=== PATIENT | male | born 1995 | race Hispanic/Latino ===

== ENCOUNTER 2018-05-10 12:15 | Emergency (ER) | payer BC, SELFPAY ==
--- NOTE | 2018-05-10 13:07 | EDPHYS ---
Physician Documentation [facility] Name: Lizandro Govea Age: 22 yrs Sex: Male : 1995 Arrival Date: 05/10/2018 Time: 12:20 Bed 9 Private MD: None, None ED Physician Cirilo King HPI: 05/10 14:11 This 22 yrs old Male presents to ER via Ambulatory with complaints of Knee snw Pain. 14:11 The patient presents with knee continues to give out at intervals. The complaints snw affect the left knee. Context: The problem was sustained at home, resulted from twisting of the extremity, while running, the patient can fully bear weight, the patient is able to ambulate, knee injury initially occurred in August 2017 at [facility] [employer] in [place]. Knee gives out suddenly and unexpectedly. Today at work, pt was walking with co-worker. knee gave out and pt fell to ground. Onset: The symptoms/episode began/occurred suddenly. Associated signs and symptoms: Pertinent positives: swelling. Treatment prior to arrival includes: no previous treatment. Severity of symptoms: At their worst the symptoms were moderate. as noted. The patient has not recently seen a physician. pt's fall at work was last evening (05/09/18). Historical: - Allergies: 12:32 No Known Allergies; sv - PMHx: 12:32 None; sv - PSHx: 12:32 None; sv - Immunization history:: Flu vaccine is not up to date. - Social history:: Smoking status: Patient uses tobacco products, smokes one-half pack cigarettes per day. - Ebola Screening: : No symptoms or risks identified at this time. ROS: 14:06 Constitutional: Negative for fever, chills, and weight loss, Eyes: Negative for injury, snw pain, redness, and discharge, ENT: Negative for injury, pain, and discharge, Neck: Negative for injury, pain, and swelling, Cardiovascular: Negative for chest pain, palpitations, and edema, Respiratory: Negative for shortness of breath, cough, wheezing, and pleuritic chest pain, Abdomen/GI: Negative for abdominal pain, nausea, vomiting, diarrhea, and constipation, Back: Negative for injury and pain, : Negative for injury, bleeding, discharge, and swelling, Skin: Negative for injury, rash, and discoloration, Neuro: Negative for headache, weakness, numbness, tingling, and seizure, Psych: Negative for depression, anxiety, suicide ideation, homicidal ideation, and hallucinations. 14:06 MS/extremity: Positive for injury or acute deformity, swelling, tenderness, left knee continues to give out in intervals while walking, initially injured knee in August . Exam: 14:06 Constitutional: This is a well developed, well nourished patient who is awake, alert, snw and in no acute distress. Head/Face: Normocephalic, atraumatic. Eyes: Pupils equal round and reactive to light, extra-ocular motions intact. Lids and lashes normal. Conjunctiva and sclera are non-icteric and not injected. Cornea within normal limits. Periorbital areas with no swelling, redness, or edema. ENT: Nares patent. No nasal discharge, no septal abnormalities noted. Tympanic membranes are normal and external auditory canals are clear. Oropharynx with no redness, swelling, or masses, exudates, or evidence of obstruction, uvula midline. Mucous membranes moist. Neck: Trachea midline, no thyromegaly or masses palpated, and no cervical lymphadenopathy. Supple, full range of motion without nuchal rigidity, or vertebral point tenderness. No Meningismus. Chest/axilla: Normal chest wall appearance and motion. Nontender with no deformity. No lesions are appreciated. Cardiovascular: Regular rate and rhythm with a normal S1 and S2. No gallops, murmurs, or rubs. Normal PMI, no JVD. No pulse deficits. Respiratory: Lungs have equal breath sounds bilaterally, clear to auscultation and percussion. No rales, rhonchi or wheezes noted. No increased work of breathing, no retractions or nasal flaring. Abdomen/GI: Soft, non-tender, with normal bowel sounds. No distension or tympany. No guarding or rebound. No evidence of tenderness throughout. Back: No spinal tenderness. No costovertebral tenderness. Full range of motion. Skin: Warm, dry with normal turgor. Normal color with no rashes, no lesions, and no evidence of cellulitis. MS/ Extremity: Pulses equal, no cyanosis. Neurovascular intact. Full, normal range of motion. Neuro: Awake and alert, GCS 15, oriented to person, place, time, and situation. Cranial nerves II-XII grossly intact. Motor strength 5/5 in all extremities. Sensory grossly intact. Cerebellar exam normal. Normal gait. Psych: Awake, alert, with orientation to person, place and time. Behavior, mood, and affect are within normal limits. Vital Signs: 12:32 BP 134 / 72; Pulse 78; Resp 16; Temp 98; Pulse Ox 99% ; Weight 95.25 kg; Height 5 ft. sv 11 in. (180.34 cm); Pain 0/10; 12:32 Body Mass Index 29.29 (95.25 kg, 180.34 cm) sv MDM: 12:49 Patient medically screened. snw 14:08 Data reviewed: vital signs, nurses notes. Data interpreted: Pulse oximetry: on room air snw is 99 %. Interpretation: normal. Counseling: I had a detailed discussion with the patient and/or guardian regarding: the historical points, exam findings, and any diagnostic results supporting the discharge/admit diagnosis, the need for outpatient follow up, to return to the emergency department if symptoms worsen or persist or if there are any questions or concerns that arise at home. Special discussion: Based on the history and exam findings, there is no indication for further emergent testing or inpatient evaluation. I discussed with the patient/guardian the need to see the orthopedic surgeon for further evaluation of the symptoms. 05/10 13:06 Order name: Knee Immobilizer; Complete Time: 14:00 snw Administered Medications: No medications were administered Disposition: 15:51 Co-signature as Attending Physician, Cirilo King MD I agree with the assessment and gege plan of care. Disposition: 05/10/18 13:06 Discharged to Home. Impression: Internal derangement of knee. - Condition is Stable. - Discharge Instructions: Knee Immobilizer, Knee Sprain, Cryotherapy, Heat Therapy. - Prescriptions for Motrin IB 200 mg Oral Tablet - take 2 tablet by ORAL route every 6 hours As needed as needed with food; 40 tablet. - Work release form, Medication Reconciliation Form, Thank You Letter, Antibiotic Education, Prescription Opioid Use form. - Follow up: Private Physician; When: 1 - 2 days; Reason: Recheck today's complaints, Continuance of care, Re-evaluation by your physician. Follow up: Emergency Department; When: As needed; Reason: Worsening of condition. Signatures: Padmaja Moore RN RN sv Anderson, Corey, MD MD cha Ramesh, Gillian, COW BUYER-C COW BUYER-Csnw Carin Rico RN RN iw Corrections: (The following items were deleted from the chart) 14:23 13:06 05/10/2018 13:06 Discharged to Home. Impression: Internal derangement of knee. iw Condition is Stable. Forms are Medication Reconciliation Form, Thank You Letter, Antibiotic Education, Prescription Opioid Use. Follow up: Private Physician; When: 1 - 2 days; Reason: Recheck today's complaints, Continuance of care, Re-evaluation by your physician. Follow up: Emergency Department; When: As needed; Reason: Worsening of condition. snw
--- NOTE | 2018-05-10 13:07 | ER ---
Nurse's Notes [facility] Name: Lizandro Govea Age: 22 yrs Sex: Male : 1995 Arrival Date: 05/10/2018 Time: 12:20 Bed 9 Private MD: None, None Diagnosis: Internal derangement of knee Presentation: 05/10 12:30 Presenting complaint: Patient states: left knee pain since August 2017. Was at work today sv and the knee gave out on him. Transition of care: patient was not received from another setting of care. Onset of symptoms was 2017. Care prior to arrival: None. 12:30 Method Of Arrival: Ambulatory sv 12:30 Acuity: NIRMALA 4 sv 14:00 Risk Assessment: Do you want to hurt yourself or someone else? Patient reports no iw desire to harm self or others. Initial Sepsis Screen: Does the patient meet any 2 criteria? No. Patient's initial sepsis screen is negative. Does the patient have a suspected source of infection? No. Patient's initial sepsis screen is negative. Triage Assessment: 12:32 General: Appears in no apparent distress. comfortable, Behavior is calm, cooperative, sv appropriate for age. Pain: Denies pain. Neuro: Level of Consciousness is awake, alert, obeys commands, Oriented to person, place, time, situation, Moves all extremities. Full function Gait is steady. Respiratory: Respiratory effort is even, unlabored, Respiratory pattern is regular, symmetrical. Historical: - Allergies: 12:32 No Known Allergies; sv - PMHx: 12:32 None; sv - PSHx: 12:32 None; sv - Immunization history:: Flu vaccine is not up to date. - Social history:: Smoking status: Patient uses tobacco products, smokes one-half pack cigarettes per day. - Ebola Screening: : No symptoms or risks identified at this time. Screenin:20 Abuse screen: Denies threats or abuse. Denies injuries from another. Nutritional iw screening: No deficits noted. Tuberculosis screening: No symptoms or risk factors identified. Fall Risk None identified. Vital Signs: 12:32 BP 134 / 72; Pulse 78; Resp 16; Temp 98; Pulse Ox 99% ; Weight 95.25 kg; Height 5 ft. sv 11 in. (180.34 cm); Pain 0/10; 12:32 Body Mass Index 29.29 (95.25 kg, 180.34 cm) sv ED Course: 12:20 Patient arrived in ED. sb2 12:21 None, None is Private Physician. sb2 12:21 Gillian Chandler FNP-C [facility]. snw 12:21 Cirilo King MD is Attending Physician. snw 12:30 Patient has correct armband on for positive identification. iw 12:31 Triage completed. sv 12:32 Arm band placed on. sv 14:20 No provider procedures requiring assistance completed. Patient did not have IV access iw during this emergency room visit. 14:23 Carin Rico, RN is Primary Nurse. iw Administered Medications: No medications were administered Outcome: 13:06 Discharge ordered by . snw 14:22 Discharged to home ambulatory. iw 14:22 Condition: good 14:22 Discharge instructions given to patient, Instructed on discharge instructions, follow up and referral plans. Demonstrated understanding of instructions, follow-up care. 14:23 Patient left the ED. iw Signatures: Padmaja Moore RN RN Gillian Chandler FNP-C CAR DEALER-Csnw Carin Rico, RN RN iw Kaia Montague sb2 Corrections: (The following items were deleted from the chart) 12:33 12:32 Pulse 78bpm; Resp 16bpm; Pulse Ox 99%; Temp 98F; 95.25 kg; Height 5 ft. 11 in.; sv BMI: 29.2; Pain 0/10; sv
[2018-05-10 14:30] VITALS: BP 134/72; TEMP 98; O2SAT 99
== END 2018-05-10 14:23 | disposition home or self-care (01) ==
LOC: ER 12:15
DX: M23.92 Unspecified internal derangement of left knee (principal)

== ENCOUNTER 2019-05-18 12:38 | Emergency (ER) | payer BC ==
--- NOTE | 2019-05-18 13:43 | EDPHYS ---
Physician Documentation [facility] Name: Lizandro Govea Age: 23 yrs Sex: Male : 1995 Arrival Date: 05/18/2019 Time: 12:40 Bed 17 Private MD: ED Physician Cirilo King HPI: 05/18 13:38 This 23 yrs old Male presents to ER via Ambulatory with complaints of Eye gege Problem. 13:38 The patient is experiencing pain, redness, left cheek. Onset: The symptoms/episode gege began/occurred 4 day(s) ago. Duration: the symptoms are continuous. Aggravated by pressure, Alleviated by cold application. Associated signs and symptoms: Pertinent positives: None. Pertinent negatives: None. Severity of symptoms: At their worst the symptoms were mild in the emergency department the symptoms are unchanged. The patient has not experienced similar symptoms in the past. Historical: - Allergies: 12:46 No Known Allergies; jl7 - Home Meds: 12:46 None [Active]; jl7 - PMHx: 12:46 None; jl7 - PSHx: 12:46 None; jl7 - Immunization history:: Adult Immunizations not up to date. - Coronavirus screen:: The patient has NOT traveled to [place], [place], or [place] in the past 14 days. Proceed with normal triage process as indicated. - Social history:: Smoking status: Patient reports the use of cigarette tobacco products, 3 cigarettes/day. - Family history:: not pertinent. - Ebola Screening: : No symptoms or risks identified at this time. ROS: 13:38 Constitutional: Negative for fever, chills, and weight loss, ENT: Negative for injury, gege pain, and discharge, Neck: Negative for injury, pain, and swelling, Cardiovascular: Negative for chest pain, palpitations, and edema, Respiratory: Negative for shortness of breath, cough, wheezing, and pleuritic chest pain, Abdomen/GI: Negative for abdominal pain, nausea, vomiting, diarrhea, and constipation, Back: Negative for injury and pain, : Negative for injury, bleeding, discharge, and swelling, MS/Extremity: Negative for injury and deformity, Skin: Negative for injury, rash, and discoloration, Neuro: Negative for headache, weakness, numbness, tingling, and seizure, Psych: Negative for depression, anxiety, suicide ideation, homicidal ideation, and hallucinations, Allergy/Immunology: Negative for hives, rash, and allergies, Endocrine: Negative for neck swelling, polydipsia, polyuria, polyphagia, and marked weight changes, Hematologic/Lymphatic: Negative for swollen nodes, abnormal bleeding, and unusual bruising. 13:38 Eyes: Positive for pain, swelling. 13:38 ENT: Positive for left cheek swelling. Exam: 13:38 Constitutional: This is a well developed, well nourished patient who is awake, alert, gege and in no acute distress. Eyes: Pupils equal round and reactive to light, extra-ocular motions intact. Lids and lashes normal. Conjunctiva and sclera are non-icteric and not injected. Cornea within normal limits. Periorbital areas with no swelling, redness, or edema. ENT: Nares patent. No nasal discharge, no septal abnormalities noted. Tympanic membranes are normal and external auditory canals are clear. Oropharynx with no redness, swelling, or masses, exudates, or evidence of obstruction, uvula midline. Mucous membranes moist. Neck: Trachea midline, no thyromegaly or masses palpated, and no cervical lymphadenopathy. Supple, full range of motion without nuchal rigidity, or vertebral point tenderness. No Meningismus. Chest/axilla: Normal chest wall appearance and motion. Nontender with no deformity. No lesions are appreciated. Cardiovascular: Regular rate and rhythm with a normal S1 and S2. No gallops, murmurs, or rubs. Normal PMI, no JVD. No pulse deficits. Respiratory: Lungs have equal breath sounds bilaterally, clear to auscultation and percussion. No rales, rhonchi or wheezes noted. No increased work of breathing, no retractions or nasal flaring. Abdomen/GI: Soft, non-tender, with normal bowel sounds. No distension or tympany. No guarding or rebound. No evidence of tenderness throughout. Back: No spinal tenderness. No costovertebral tenderness. Full range of motion. Skin: Warm, dry with normal turgor. Normal color with no rashes, no lesions, and no evidence of cellulitis. MS/ Extremity: Pulses equal, no cyanosis. Neurovascular intact. Full, normal range of motion. Neuro: Awake and alert, GCS 15, oriented to person, place, time, and situation. Cranial nerves II-XII grossly intact. Motor strength 5/5 in all extremities. Sensory grossly intact. Cerebellar exam normal. Normal gait. Psych: Awake, alert, with orientation to person, place and time. Behavior, mood, and affect are within normal limits. 13:38 Head/face: Noted is swelling, that is moderate, tenderness, that is mild, of the left cheek. Vital Signs: 12:46 BP 143 / 66; Pulse 83; Resp 16 S; Temp 98.5(O); Pulse Ox 100% on R/A; Weight 99.79 kg jl7 (R); Height 5 ft. 11 in. (180.34 cm) (R); Pain 2/10; 14:00 BP 137 / 64; Pulse 78; Resp 18; Temp 98.0; Pulse Ox 99% on R/A; ph 12:46 Body Mass Index 30.68 (99.79 kg, 180.34 cm) jl7 MDM: 12:52 Patient medically screened. [facility] 13:40 Data reviewed: vital signs, nurses notes, lab test result(s). [facility] 05/18 13:38 Order name: Blood Glucose Level; Complete Time: 14:07 [facility] Administered Medications: 14:06 Drug: Bactroban Ointment 2 % 1 application Route: Topical; Site: affected area; ph 14:07 Follow up: Response: No adverse reaction; Medication administered at discharge. ph 14:06 Drug: Doxycycline 200 mg Route: PO; ph 14:07 Follow up: Response: No adverse reaction; Medication administered at discharge. ph 14:07 Drug: Bactrim (160 mg-800 mg (DS) 1 tablet Route: PO; ph 14:07 Follow up: Response: No adverse reaction; Medication administered at discharge. Disposition: 05/18/19 13:42 Discharged to Home. Impression: Cellulitis and acute lymphangitis of face. - Condition is Stable. - Discharge Instructions: Cellulitis, Adult, Cellulitis, Adult, [id number]. - Prescriptions for Bactroban 2 % Topical Ointment - Apply to affected area 1 application by TOPICAL route every 12 hours; 30 gram. Benadryl 25 mg Oral Capsule - take 1 capsule by ORAL route every 6 hours As needed; 30 tablet. Doxycycline Hyclate 100 mg Oral Tablet - take 1 tablet by ORAL route every 12 hours; 20 tablet. Bactrim DS 800- 160 mg Oral Tablet - take 1 tablet by ORAL route every 12 hours for 10 days; 20 tablet. - Medication Reconciliation Form, Thank You Letter, Antibiotic Education, Prescription Opioid Use form. - Follow up: Private Physician; When: 2 - 3 days; Reason: Recheck today's complaints, Continuance of care, Re-evaluation by your physician. Follow up: Tai Carter MD; When: 2 - 3 days; Reason: Recheck today's complaints, Re-evaluation by your physician. - Problem is new. - Symptoms have improved. Signatures: Cirilo King MD MD cha Hall, Patricia RN RN ph Мария Sheehan RN RN jl7 Corrections: (The following items were deleted from the chart) 14:07 13:42 05/18/2019 13:42 Discharged to Home. Impression: Cellulitis and acute ph lymphangitis of face. Condition is Stable. Forms are Medication Reconciliation Form, Thank You Letter, Antibiotic Education, Prescription Opioid Use. Follow up: Private Physician; When: 2 - 3 days; Reason: Recheck today's complaints, Continuance of care, Re-evaluation by your physician. Follow up: Tai Carter; When: 2 - 3 days; Reason: Recheck today's complaints, Re-evaluation by your physician. Problem is new. Symptoms have improved. gege
--- NOTE | 2019-05-18 13:43 | ER ---
Nurse's Notes [facility] Name: Lizandro Govea Age: 23 yrs Sex: Male : 1995 Arrival Date: 05/18/2019 Time: 12:40 Bed 17 Private MD: Diagnosis: Cellulitis and acute lymphangitis of face Presentation: 05/18 12:44 Presenting complaint: Patient states: Woke up Thursday morning with a bump under my jl7 left eye, put some cream on it and by Thursday morning it was swollen and it's gotten worse today. Transition of care: patient was not received from another setting of care. Onset of symptoms was May 14, 2019. Risk Assessment: Do you want to hurt yourself or someone else? Patient reports no desire to harm self or others. Initial Sepsis Screen: Does the patient meet any 2 criteria? No. Patient's initial sepsis screen is negative. Does the patient have a suspected source of infection? No. Patient's initial sepsis screen is negative. Care prior to arrival: None. 12:44 Method Of Arrival: Ambulatory [facility] 12:44 Acuity: NIRMALA 4 jl7 Triage Assessment: 12:46 General: Appears in no apparent distress. uncomfortable, Behavior is calm, cooperative, jl7 appropriate for age. Pain: Complains of pain in left cheek Pain currently is 2 out of 10 on a pain scale. Historical: - Allergies: 12:46 No Known Allergies; jl7 - Home Meds: 12:46 None [Active]; jl7 - PMHx: 12:46 None; jl7 - PSHx: 12:46 None; jl7 - Immunization history:: Adult Immunizations not up to date. - Coronavirus screen:: The patient has NOT traveled to [place], [place], or [place] in the past 14 days. Proceed with normal triage process as indicated. - Social history:: Smoking status: Patient reports the use of cigarette tobacco products, 3 cigarettes/day. - Family history:: not pertinent. - Ebola Screening: : No symptoms or risks identified at this time. Screenin/30 13:15 Abuse screen: Denies threats or abuse. Denies injuries from another. Nutritional ph screening: No deficits noted. Tuberculosis screening: No symptoms or risk factors identified. Fall Risk None identified. Assessment: 05/18 13:15 General: Appears in no apparent distress. comfortable, slender, well groomed, Behavior ph is calm, cooperative, appropriate for age, Denies fever. Pain: Complains of pain in left cheek. Neuro: Level of Consciousness is awake, alert, obeys commands, Oriented to person, place, time, situation. Cardiovascular: Capillary refill < 3 seconds in bilateral fingers. Respiratory: Airway is patent Respiratory effort is even, unlabored. Derm: Skin is intact, is healthy with good turgor, Skin is pink, warm \T\ dry. redness and swelling noted to L cheek. Vital Signs: 12:46 BP 143 / 66; Pulse 83; Resp 16 S; Temp 98.5(O); Pulse Ox 100% on R/A; Weight 99.79 kg jl7 (R); Height 5 ft. 11 in. (180.34 cm) (R); Pain 2/10; 14:00 BP 137 / 64; Pulse 78; Resp 18; Temp 98.0; Pulse Ox 99% on R/A; ph 12:46 Body Mass Index 30.68 (99.79 kg, 180.34 cm) jl7 ED Course: 12:40 Patient arrived in ED. ag5 12:45 Triage completed. jl7 12:46 Arm band placed on right wrist. jl7 12:52 Cirilo King MD is Attending Physician. gege 13:29 Camille Jose, RN is Primary Nurse. ph 13:41 Tai Carter MD is Referral Physician. gege 14:05 No provider procedures requiring assistance completed. Patient did not have IV access ph during this emergency room visit. 05/19 13:15 Patient has correct armband on for positive identification. Bed in low position. Call ph light in reach. Pulse ox on. NIBP on. Door closed. Noise minimized. Warm blanket given. Administered Medications: 05/18 14:06 Drug: Bactroban Ointment 2 % 1 application Route: Topical; Site: affected area; ph 14:07 Follow up: Response: No adverse reaction; Medication administered at discharge. ph 14:06 Drug: Doxycycline 200 mg Route: PO; ph 14:07 Follow up: Response: No adverse reaction; Medication administered at discharge. ph 14:07 Drug: Bactrim (160 mg-800 mg (DS) 1 tablet Route: PO; ph 14:07 Follow up: Response: No adverse reaction; Medication administered at discharge. ph Outcome: 13:42 Discharge ordered by . [facility] 14:07 Patient left the ED. ph 14:07 Discharged to home ambulatory. ph 14:07 Condition: good 14:07 Discharge instructions given to patient, Instructed on discharge instructions, follow up and referral plans. medication usage, Demonstrated understanding of instructions, follow-up care, medications, Prescriptions given X 4. Signatures: Cirilo King MD MD cha Hall, Patricia RN RN Мария Sheehan RN RN jl7 Meeta Pantoja [facility]
[2019-05-18] MEDS ORDERED: DOXYCYCLINE 100 MG CAP PO ONE (14:05)
[2019-05-18] MEDS ORDERED: SMZ./TMP. 800/160 MG TABLET ONE (14:05)
[2019-05-18] MEDS ORDERED: MUPIROCIN 2% OINT 22GM TUBE TOP ONE (14:06)
[2019-05-18 14:38] VITALS: BP 143/66; TEMP 98.5; O2SAT 100
== END 2019-05-18 14:07 | disposition home or self-care (01) ==
LOC: ER 12:38
DX: L03.211 Cellulitis of face (principal); L03.212 Acute lymphangitis of face; Z72.0 Tobacco use
CPT/HCPCS: 82947; 99283

== ENCOUNTER 2020-05-30 13:16 | Emergency (ER) | payer BC, SELFPAY ==
[2020-05-30] MEDS ORDERED: ONDANSETRON 4 MG (ODT) TAB ONE (14:05)
[2020-05-30 15:12] LABS: SARS-COV-2 RT PCR NEGATIVE (NEGATIVE)
[2020-05-30] MEDS ORDERED: PROMETHAZINE INJ 25 MG/ML AMP ONE (15:23)
[2020-05-30 15:56] LABS: Absolute Lymphocytes (CBC) 0.7 K/uL (0.7-4.9); Basophils % 0.2 % (0-1.3); Hematocrit 42.2 % (39.6-49.0); Lymphocytes % 3.6 % (15.3-44.8); MPV 8.1 fL (7.6-11.3); RBC Red Blood Cell Count 4.71 M/uL (4.33-5.43)
[2020-05-30] MEDS ORDERED: NA CHLORIDE 0.9% 1,000 ML ONE (16:02)
[2020-05-30 16:10] LABS: BUN Blood Urea Nitrogen 15 mg/dL (7-18); Bicarbonate 23 mmol/L (21-32); Glucose Level 130 mg/dL (74-106); Potassium 3.8 mmol/L (3.5-5.1); Sodium Level 140 mmol/L (136-145)
--- NOTE | 2020-05-30 17:11 | RAD REPORT ---
EXAM DESCRIPTION: CT - Abdomen Pelvis W Contrast - 05/30/2020 4:54 pm CLINICAL HISTORY: Abdominal pain COMPARISON: none. TECHNIQUE: Computed axial tomography of the abdomen pelvis was obtained. 100 cc Isovue-300 was admin istered intravenously. Oral contrast was not requested which limits evaluation of bowel and appendix l. All CT scans are performed using dose optimization technique as appropriate and may include automated exposure control or mA/KV adjustment according to patient size. FINDINGS: The liver, spleen, pancreas, adrenal and kidneys appear unremarkable. There is no evidence of diverticulitis. No ascites. Normal appendix IMPRESSION: No acute abnormality is displayed.
[2020-05-30 17:36] LABS: Blood Morphology Comment NOT SEEN (NOT SEEN); Platelet Estimate ADEQ; White Blood Cell Scan OK (OK)
--- NOTE | 2020-05-30 17:50 | RAD REPORT ---
EXAM DESCRIPTION: Jen Single View05/30/2020 4:32 pm CLINICAL HISTORY: cough COMPARISON: 2009 FINDINGS: The lungs appear clear of acute infiltrate. The heart is normal size IMPRESSION: No acute abnormalities displayed
--- NOTE | 2020-05-30 17:57 | ER ---
Nurse's Notes [facility] Name: Lizandro Govea Age: 24 yrs Sex: Male : 1995 Arrival Date: 05/30/2020 Time: 13:19 Bed 14 Private MD: Diagnosis: Elevated white blood cell count;Nausea and vomiting Presentation: 05/30 13:45 Chief complaint: Patient states: body aches, n/v/d, chills x 5 days. Coronavirus sv screen: Client denies travel out of the [place] in the last 14 days. At this time, the client does not indicate any symptoms associated with coronavirus-19. Ebola Screen: No symptoms or risks identified at this time. Risk Assessment: Do you want to hurt yourself or someone else? Patient reports no desire to harm self or others. Onset of symptoms was May 25, 2020. 13:45 Method Of Arrival: Ambulatory sv 13:45 Acuity: NIRMALA 3 sv 14:00 Initial Sepsis Screen: Does the patient meet any 2 criteria? No. Patient's initial bp sepsis screen is negative. Does the patient have a suspected source of infection? No. Patient's initial sepsis screen is negative. Triage Assessment: 13:45 General: Appears in no apparent distress. uncomfortable, Behavior is cooperative, sv appropriate for age, anxious. Neuro: Level of Consciousness is awake, alert, obeys commands, Oriented to person, place, time, situation, Gait is steady, Speech is normal. Respiratory: Respiratory effort is even, unlabored, Respiratory pattern is regular, symmetrical. GI: Reports diarrhea, nausea, vomiting. Historical: - Allergies: 13:47 No Known Allergies; sv - PMHx: 13:47 None; sv - PSHx: 13:47 None; sv - Immunization history:: Adult Immunizations. - Social history:: Smoking status: Patient denies any tobacco usage or history of. Screenin:00 Abuse screen: Denies threats or abuse. Denies injuries from another. Nutritional bp screening: No deficits noted. Tuberculosis screening: No symptoms or risk factors identified. Fall Risk None identified. Assessment: 14:00 General: SEE TRIAGE NOTE. Pain: Complains of pain in GENERALIZED. GI: Reports nausea, bp vomiting. 15:59 Reassessment: No changes from previously documented assessment. IVF INFUSING. bp 17:00 Reassessment: PT RETURNED FROM CT. GI: Pt is actively vomiting bile. bp 18:49 Reassessment: PT D/C HOME AMBULATORY, DX WITH VIRAL GASTROENTERITIS. bp Vital Signs: 13:47 BP 126 / 68; Pulse 90; Resp 20; Pulse Ox 99% ; Weight 95.25 kg; Height 5 ft. 11 in. sv (180.34 cm); 15:56 BP 126 / 53; Pulse 74; Resp 16; Pulse Ox 100% ; bp 17:03 BP 125 / 63; Pulse 74; Resp 16; Pulse Ox 100% ; bp 18:49 BP 126 / 70; Pulse 87; Resp 18; Pulse Ox 100% ; bp 13:47 Body Mass Index 29.29 (95.25 kg, 180.34 cm) sv ED Course: 13:19 Patient arrived in ED. as 13:33 Anne Reece FNP-C is [facility]. kb 13:33 Miguel Lr MD is Attending Physician. kb 13:45 Arm band placed on. sv 13:46 Triage completed. sv 13:52 COVID swab sent to lab. Flu and/or RSV swab sent to lab. sv 14:00 Patient has correct armband on for positive identification. Bed in low position. Call bp light in reach. Side rails up X2. 14:05 COVID-19 : Document "Date of Symptom Onset" if Symptomatic. Sent. sv 14:05 Flu Sent. sv 14:14 Reynaldo Ireland, RN is Primary Nurse. bp 15:44 Inserted saline lock: 20 gauge in left antecubital area, using aseptic technique. Blood dh4 collected. 16:32 Chest Single View XRAY In Process Unspecified. EDMS 16:53 CT Abd/Pelvis - IV Contrast Only In Process Unspecified. EDMS 18:49 No provider procedures requiring assistance completed. IV discontinued, intact, bp bleeding controlled, No redness/swelling at site. Pressure dressing applied. Administered Medications: 13:51 Drug: Zofran (Ondansetron) 4 mg Route: PO; sv 15:13 Follow up: Response: No adverse reaction bp 15:10 Drug: Phenergan 25 mg Route: PO; bp 15:13 Follow up: Response: Nausea is decreased bp 15:30 Drug: NS 0.9% 1000 ml Route: IV; Rate: 1000 ml; Site: left antecubital; bp 18:18 Follow up: IV Status: Completed infusion; IV Intake: 1000ml bp 18:00 Drug: Zofran (Ondansetron) 4 mg Route: IVP; Site: left antecubital; bp 18:18 Follow up: Response: Nausea is decreased bp Intake: 18:18 IV: 1000ml; Total: 1000ml. bp Outcome: 17:56 Discharge ordered by . timothy 18:51 Discharged to home ambulatory, with family. bp 18:51 Condition: stable 18:51 Discharge instructions given to patient, Instructed on discharge instructions, follow up and referral plans. medication usage, Demonstrated understanding of instructions, follow-up care, medications, Prescriptions given X 2. 18:53 Patient left the ED. bp Signatures: Dispatcher [employer] EDMS Anne Reece, TAYE SHEPHERD-Padmaja Chow, RN Rekha Bautista Brian, SHALA RN Víctor Wilson [facility]
--- NOTE | 2020-05-30 17:57 | EDPHYS ---
Physician Documentation [facility] Name: Lizandro Govea Age: 24 yrs Sex: Male : 1995 Arrival Date: 05/30/2020 Time: 13:19 Bed 14 Private MD: ED Physician Miguel Lr HPI: 05/30 18:47 This 24 yrs old Male presents to ER via Ambulatory with complaints of kb Vomiting, Pain All Over, Shortness Of Breath. 18:47 The patient has not experienced similar symptoms in the past. The patient has not kb recently seen a physician. 18:48 The patient or guardian reports cough, that is intermittent, described as mild, with no kb sputum, flu symptoms, low-grade fever, myalgias, no appetite. Onset: The symptoms/episode began/occurred 5 day(s) ago. Severity of symptoms: At their worst the symptoms were mild, moderate, in the emergency department the symptoms are unchanged. Modifying factors: The symptoms are alleviated by nothing, the symptoms are aggravated by nothing. Associated signs and symptoms: Pertinent positives: fever, nausea, vomiting. Pt reports fever, bodyaches, chills, malaise for 5 days. nausea started yesterday, vomiting this morning. . Historical: - Allergies: 13:47 No Known Allergies; sv - PMHx: 13:47 None; sv - PSHx: 13:47 None; sv - Immunization history:: Adult Immunizations. - Social history:: Smoking status: Patient denies any tobacco usage or history of. ROS: 18:06 Cardiovascular: Negative for chest pain, palpitations, and edema, Respiratory: Negative kb for shortness of breath, cough, wheezing, and pleuritic chest pain, Back: Negative for injury and pain, MS/Extremity: Negative for injury and deformity, Skin: Negative for injury, rash, and discoloration, Neuro: Negative for headache, weakness, numbness, tingling, and seizure. 18:06 Constitutional: Positive for body aches, chills, fatigue, malaise. 18:06 Abdomen/GI: Positive for abdominal pain, nausea and vomiting, Negative for diarrhea. Exam: 18:06 Constitutional: This is a well developed, well nourished patient who is awake, alert, kb and in no acute distress. Head/Face: Normocephalic, atraumatic. Chest/axilla: Normal chest wall appearance and motion. Nontender with no deformity. No lesions are appreciated. Cardiovascular: Regular rate and rhythm with a normal S1 and S2. No gallops, murmurs, or rubs. Normal PMI, no JVD. No pulse deficits. Respiratory: Lungs have equal breath sounds bilaterally, clear to auscultation and percussion. No rales, rhonchi or wheezes noted. No increased work of breathing, no retractions or nasal flaring. Skin: Warm, dry with normal turgor. Normal color with no rashes, no lesions, and no evidence of cellulitis. MS/ Extremity: Pulses equal, no cyanosis. Neurovascular intact. Full, normal range of motion. Neuro: Awake and alert, GCS 15, oriented to person, place, time, and situation. Cranial nerves II-XII grossly intact. Motor strength 5/5 in all extremities. Sensory grossly intact. Cerebellar exam normal. Normal gait. 18:06 Abdomen/GI: Inspection: abdomen appears normal, Bowel sounds: normal, in all quadrants, Palpation: soft, in all quadrants, mild abdominal tenderness, in the epigastric area. Vital Signs: 13:47 BP 126 / 68; Pulse 90; Resp 20; Pulse Ox 99% ; Weight 95.25 kg; Height 5 ft. 11 in. sv (180.34 cm); 15:56 BP 126 / 53; Pulse 74; Resp 16; Pulse Ox 100% ; bp 17:03 BP 125 / 63; Pulse 74; Resp 16; Pulse Ox 100% ; bp 18:49 BP 126 / 70; Pulse 87; Resp 18; Pulse Ox 100% ; bp 13:47 Body Mass Index 29.29 (95.25 kg, 180.34 cm) sv MDM: 14:16 Patient medically screened. kb 18:05 Data reviewed: vital signs, nurses notes. Data interpreted: Pulse oximetry: on room air kb is 100 %. Interpretation: normal. Counseling: I had a detailed discussion with the patient and/or guardian regarding: the historical points, exam findings, and any diagnostic results supporting the discharge/admit diagnosis, lab results, radiology results, the need for outpatient follow up, a family practitioner, to return to the emergency department if symptoms worsen or persist or if there are any questions or concerns that arise at home. 05/30 13:48 Order name: Flu kb 05/30 13:48 Order name: COVID-19 : Document "Date of Symptom Onset" if Symptomatic. kb 05/30 15:12 Order name: COVID-19/FLU A+B; Complete Time: 15:12 EDMS 05/30 15:13 Order name: CBC with Diff kb 05/30 15:13 Order name: Basic Metabolic Panel kb 05/30 15:13 Order name: [place] Screen Profile kb 05/30 15:13 Order name: CBC with Automated Diff; Complete Time: 17:39 EDMS 05/30 15:13 Order name: Basic Metabolic Panel; Complete Time: 16:14 EDMS 05/30 15:13 Order name: [place] Screen; Complete Time: 16:26 EDMS 05/30 16:04 Order name: Chest Single View XRAY; Complete Time: 17:53 kb 05/30 16:27 Order name: CT Abd/Pelvis - IV Contrast Only; Complete Time: 17:20 kb 05/30 17:36 Order name: CBC Smear Scan; Complete Time: 17:39 EDMS 05/30 15:13 Order name: IV Start; Complete Time: 15:44 kb Administered Medications: 13:51 Drug: Zofran (Ondansetron) 4 mg Route: PO; sv 15:13 Follow up: Response: No adverse reaction bp 15:10 Drug: Phenergan 25 mg Route: PO; bp 15:13 Follow up: Response: Nausea is decreased bp 15:30 Drug: NS 0.9% 1000 ml Route: IV; Rate: 1000 ml; Site: left antecubital; bp 18:18 Follow up: IV Status: Completed infusion; IV Intake: 1000ml bp 18:00 Drug: Zofran (Ondansetron) 4 mg Route: IVP; Site: left antecubital; bp 18:18 Follow up: Response: Nausea is decreased bp Disposition: 05/31 06:43 Co-signature as Attending Physician, Miguel Lr MD I agree with the assessment and kdr plan of care. Disposition: 05/30/20 17:56 Discharged to Home. Impression: Elevated white blood cell count, Nausea and vomiting. - Condition is Stable. - Discharge Instructions: Viral Gastroenteritis, Adult, [id number], Nausea and Vomiting, Adult, [id number]. - Prescriptions for Bentyl 20 mg Oral Tablet - take 1 tablet by ORAL route every 6 hours As needed; 20 tablet. Zofran 4 mg Oral Tablet - take 1 tablet by ORAL route every 6 hours As needed; 20 tablet. - Medication Reconciliation Form, Thank You Letter, Antibiotic Education, Prescription Opioid Use form. - Follow up: Emergency Department; When: As needed; Reason: Worsening of condition. Follow up: Private Physician; When: 2 - 3 days; Reason: Recheck today's complaints, Continuance of care, Re-evaluation by your physician. Signatures: Dispatcher [employer] EDVT Anne Reece, ASSEMBLY STOCK SUPERVISOR-C ASSEMBLY STOCK SUPERVISOR-CkPadmaja Gentile, RN RN sv Miguel Lr MD MD kdr Reynaldo Ireland, RN RN bp Corrections: (The following items were deleted from the chart) 05/30 14:28 13:49 Influenza Screen (A ordered. [facility] 14:28 13:49 CORONAVIRUS ordered. [facility] 18:53 17:56 05/30/2020 17:56 Discharged to Home. Impression: Elevated white blood cell count; bp Nausea and vomiting. Condition is Stable. Forms are Medication Reconciliation Form, Thank You Letter, Antibiotic Education, Prescription Opioid Use. Follow up: Emergency Department; When: As needed; Reason: Worsening of condition. Follow up: Private Physician; When: 2 - 3 days; Reason: Recheck today's complaints, Continuance of care, Re-evaluation by your physician. kb
[2020-05-30] MEDS ORDERED: ONDANSETRON 4 MG/2 ML VIAL ONE (18:20)
[2020-05-30 19:08] VITALS: O2SAT 100
[2020-05-30 19:10] VITALS: BP 126/70
== END 2020-05-30 18:53 | disposition home or self-care (01) ==
LOC: ER 13:16
DX: D72.829 Elevated white blood cell count, unspecified (principal); Z20.822 Contact with and (suspected) exposure to COVID-19
CPT/HCPCS: 0240U; 36415; 71045; 74177; 80048; 85025; 86308; 96361; 96374; 99284; J2405; J2550; J7030; Q9967

== ENCOUNTER 2020-08-08 15:31 | Emergency (ER) | payer SELFPAY ==
--- NOTE | 2020-08-08 20:03 | ER ---
Nurse's Notes [facility] Name: Lizandro Govea Age: 24 yrs Sex: Male : 1995 Arrival Date: 08/08/2020 Time: 15:32 Bed Waiting Private MD: Diagnosis: Presentation: 08/08 16:00 Chief complaint: Patient states: N/V with upper/LUQ abd pain off/on since May. + weight ll1 loss (30+pounds). No fever. 3rd visit for the same. Coronavirus screen: Client denies travel out of the [place] in the last 14 days. nausea, vomiting. Client presents with at least one sign or symptom that may indicate coronavirus-19. Standard/surgical mask placed on the client. Ebola Screen: Patient denies travel to an Ebola-affected area in the 21 days before illness onset. Initial Sepsis Screen: Does the patient meet any 2 criteria? No. Patient's initial sepsis screen is negative. Does the patient have a suspected source of infection? Yes: Acute abdominal pain. Risk Assessment: Do you want to hurt yourself or someone else? Patient reports no desire to harm self or others. Onset of symptoms was May 21, 2020. 16:00 Method Of Arrival: EMS ll1 16:00 Acuity: NIRMALA 3 ll1 Historical: - Allergies: 16:02 No Known Allergies; ll1 - PMHx: 16:02 None; ll1 - PSHx: 16:02 None; ll1 - Immunization history:: Flu vaccine is not up to date. - Social history:: Smoking status: Patient/guardian denies using tobacco, Stopped _ months ago 5. Assessment: 19:46 Reassessment: called from the lobby, no answer. ca1 Vital Signs: 16:00 BP 127 / 83; Pulse 87; Resp 16; Temp 97.6; Pulse Ox 96% ; Weight 81.65 kg; Height 5 ft. ll1 11 in. (180.34 cm); Pain 4/10; 16:00 Body Mass Index 25.10 (81.65 kg, 180.34 cm) ll1 ED Course: 15:32 Patient arrived in ED. as 16:02 Triage completed. ll1 16:04 Arm band placed on. ll1 Administered Medications: No medications were administered Outcome: 20:03 Patient left the ED. iw Signatures: Rekha Plata Irene RN RN iw Jasmine Black RN RN ca1 Ta Randall RN RN ll1
[2020-08-08 20:13] VITALS: BP 127/83; TEMP 97.6; O2SAT 96
== END 2020-08-08 20:03 | disposition left against medical advice (07) ==
LOC: ER 15:31
DX: Z02.9 Encounter for administrative examinations, unspecified (principal)
CPT/HCPCS: 99282

== ENCOUNTER 2021-03-29 20:34 | Emergency (ER) | payer SELFPAY ==
[2021-03-29 23:43] LABS: Basophils % 0.5 % (0-1.3); Hematocrit 42.6 % (39.6-49.0); Lymphocytes % 19.2 % (15.3-44.8); MPV 8.2 fL (7.6-11.3); RBC Red Blood Cell Count 4.72 M/uL (4.33-5.43)
[2021-03-29] MEDS ORDERED: ONDANSETRON 4 MG/2 ML VIAL ONE (23:44)
[2021-03-29] MEDS ORDERED: FAMOTIDINE 20 MG/2 ML VIAL IV ONE (23:45)
[2021-03-29 23:57] LABS: ALT/SGPT 27 U/L (12-78); AST/SGOT 5 U/L (15-37); Alkaline Phosphatase 66 U/L (45-117); BUN Blood Urea Nitrogen 11 mg/dL (7-18); Bicarbonate 28 mmol/L (21-32); Bilirubin Direct 0.2 mg/dL (0-0.2); Bilirubin Total 0.9 mg/dL (0.2-1.0); Glucose Level 95 mg/dL (74-106); Lipase 165 U/L (73-393); Magnesium 1.9 mg/dL (1.8-2.4); Potassium 3.3 mmol/L (3.5-5.1); Protein, Total 7.3 g/dL (6.4-8.2); Sodium Level 140 mmol/L (136-145)
--- NOTE | 2021-03-30 03:01 | ER ---
Nurse's Notes [facility] Name: Lizandro Govea Age: 25 yrs Sex: Male : 1995 Arrival Date: 03/29/2021 Time: 20:40 Bed 17 Private MD: Diagnosis: Nausea;Abdominal pain, unspecified Presentation: 03/29 20:53 Chief complaint: Patient states: weakness , vomiting x 3 weeks. Coronavirus screen: da3 Vaccine status: Patient reports receiving the 2nd dose of the covid vaccine. 20:53 Method Of Arrival: Ambulatory da3 20:53 Ebola Screen: No symptoms or risks identified at this time. Initial Sepsis Screen: Does da3 the patient meet any 2 criteria? No. Patient's initial sepsis screen is negative. Risk Assessment: Do you want to hurt yourself or someone else? Patient reports no desire to harm self or others. Onset of symptoms was March 14, 2021. 20:53 Acuity: NIRMALA 4 da3 03/30 03:31 Initial Sepsis Screen: Does the patient have a suspected source of infection? No. sm5 Patient's initial sepsis screen is negative. Triage Assessment: 03/29 20:57 General: Appears in no apparent distress. comfortable, Behavior is calm, cooperative. da3 Historical: - Allergies: 20:57 No Known Allergies; da3 - Immunization history:: Client reports receiving the 2nd dose of the Covid vaccine. - Social history:: Smoking status: Patient reports the use of cigarette tobacco products, Patient/guardian denies using tobacco. Screenin/11 03:31 Abuse screen: Denies threats or abuse. Denies injuries from another. Nutritional sm5 screening: No deficits noted. Tuberculosis screening: No symptoms or risk factors identified. Fall Risk None identified. Assessment: 03/29 23:30 General: Appears uncomfortable, Behavior is cooperative. Pain: Complains of pain in sm5 abdomen. Neuro: Level of Consciousness is awake, alert, Oriented to person, place, time, situation. Cardiovascular: Capillary refill < 3 seconds Patient's skin is warm and dry. Respiratory: Airway is patent Trachea midline Respiratory effort is even, unlabored. GI: Reports nausea, vomiting. 03/30 00:30 Reassessment: No changes from previously documented assessment. 5 01:30 Reassessment: No changes from previously documented assessment. sm5 02:30 Reassessment: No changes from previously documented assessment. sm5 03:30 Reassessment: No changes from previously documented assessment. sm5 Vital Signs: 03/29 20:53 BP 132 / 76; Pulse 86; Resp 16; Temp 99.1; Pulse Ox 99% on R/A; Weight 77.11 kg; Height da3 5 ft. 11 in. (180.34 cm); 03/30 00:38 BP 136 / 85; Pulse 80; Resp 17; Pulse Ox 99% on R/A; sm5 01:30 BP 132 / 81; Pulse 77; Resp 19; Pulse Ox 100% ; sm5 02:30 BP 129 / 79; Pulse 81; Resp 17; Pulse Ox 99% ; sm5 03:30 BP 130 / 75; Pulse 79; Resp 18; Pulse Ox 100% ; sm5 03/29 20:53 Body Mass Index 23.71 (77.11 kg, 180.34 cm) da3 ED Course: 03/29 20:40 Patient arrived in ED. ja2 20:57 Triage completed. da3 22:41 Cirilo Wright PA is PHCP. cp 22:41 Cirilo King MD is Attending Physician. cp 22:43 Stefania Lee, SHALA is Primary Nurse. sm5 23:33 Basic Metabolic Panel Sent. sm5 23:33 CBC with Diff Sent. sm5 23:33 Hepatic Function Sent. sm5 23:33 Lipase Sent. sm5 23:41 Inserted saline lock: 20 gauge in right antecubital area, using aseptic technique. sm5 Blood collected. 03/30 00:39 CT Abd/Pelvis - IV Contrast Only In Process Unspecified. EDMS 03:00 Prabhakar Vu MD is Referral Physician. cp 03:31 No provider procedures requiring assistance completed. IV discontinued, intact, sm5 bleeding controlled, No redness/swelling at site. Pressure dressing applied. 03:31 Arm band placed on right wrist. sm5 03:31 Patient has correct armband on for positive identification. Bed in low position. Call 5 light in reach. Administered Medications: 03/29 23:48 Drug: Pepcid (famotidine) 20 mg Route: IVP; Site: right antecubital; 5 03/30 03:27 Follow up: Response: Marked relief of symptoms sm5 03:27 Follow up: Response: Marked relief of symptoms [facility] 03/29 23:50 Drug: Zofran (Ondansetron) 4 mg Route: IVP; Site: right antecubital; 5 03/30 03:27 Follow up: Response: Marked relief of symptoms [facility] Outcome: 03:01 Discharge ordered by . elena 03:31 Discharged to home ambulatory, with friend. 5 03:31 Condition: good 03:31 Discharge instructions given to patient, friend, Instructed on discharge instructions, follow up and referral plans. medication usage, Demonstrated understanding of instructions, follow-up care, medications, Prescriptions given X 3. 03:32 Patient left the ED. 5 Signatures: Dispatcher [employer] EDMS Cirilo Wright PA PA cp Allan, David, RN RN evi3 Aishwarya Coto Sarah, RN RN sm5
--- NOTE | 2021-03-30 03:02 | EDPHYS ---
Physician Documentation [facility] Name: Lizandro Govea Age: 25 yrs Sex: Male : 1995 Arrival Date: 03/29/2021 Time: 20:40 Bed 17 Private MD: ED Physician Cirilo King HPI: 03/29 23:30 This 25 yrs old Male presents to ER via Ambulatory with complaints of WEIGHT cp LOSS, Nausea, General Weakness. 23:30 The patient presents with abdominal pain mid abdomen. cp 23:30 Onset: The symptoms/episode began/occurred 3 week(s) ago. cp 23:30 The patient presents to the emergency department with nausea, that is mild, vomiting, cp that is intermittent, abdominal pain. Possible causes: unknown. The symptoms do not radiate. Associated signs and symptoms: Pertinent positives: anorexia, weight loss, Pertinent negatives: constipation, diarrhea, fever, GI bleeding. Historical: - Allergies: 20:57 No Known Allergies; da3 - Immunization history:: Client reports receiving the 2nd dose of the Covid vaccine. - Social history:: Smoking status: Patient reports the use of cigarette tobacco products, Patient/guardian denies using tobacco. ROS: 23:35 Constitutional: Positive for weight loss, Negative for body aches, chills, fever. cp 23:35 Eyes: Negative for injury, pain, redness, and discharge. cp 23:35 Cardiovascular: Negative for chest pain, edema, palpitations. 23:35 Respiratory: Negative for cough, shortness of breath, wheezing. 23:35 Abdomen/GI: Positive for abdominal pain, nausea and vomiting, anorexia, Negative for diarrhea, constipation, hematemesis. 23:35 : Negative for urinary symptoms. 23:35 Neuro: Positive for weakness, Negative for altered mental status, headache. 23:35 All other systems are negative. Exam: 23:40 Constitutional: The patient appears in no acute distress, alert, awake, non-toxic, well cp developed, well nourished. 23:40 Head/Face: Normocephalic, atraumatic. cp 23:40 Eyes: Periorbital structures: appear normal, Conjunctiva: normal, no exudate, no injection, Sclera: no appreciated abnormality, Lids and lashes: appear normal, bilaterally. 23:40 ENT: External ear(s): are unremarkable, Nose: is normal, Mouth: Lips: moist, Oral mucosa: moist, Posterior pharynx: Airway: no evidence of obstruction, patent. 23:40 Chest/axilla: Inspection: normal, Palpation: is normal, no crepitus, no tenderness. 23:40 Cardiovascular: Rate: normal, Rhythm: regular. 23:40 Respiratory: the patient does not display signs of respiratory distress, Respirations: normal, no use of accessory muscles, no retractions, labored breathing, is not present, Breath sounds: are clear throughout, no decreased breath sounds, no stridor, no wheezing. 23:40 Abdomen/GI: Inspection: abdomen appears normal, Bowel sounds: active, all quadrants, Palpation: soft, in all quadrants, mild abdominal tenderness, in the epigastric area, umbilical area, right upper quadrant and left upper quadrant, rebound tenderness, is not appreciated, involuntary guarding, is not appreciated. 23:40 Neuro: Orientation: to person, place \T\ time. Mentation: is normal, Motor: moves all fours, strength is normal, Sensation: is normal. Vital Signs: 20:53 BP 132 / 76; Pulse 86; Resp 16; Temp 99.1; Pulse Ox 99% on R/A; Weight 77.11 kg; Height da3 5 ft. 11 in. (180.34 cm); 03/30 00:38 BP 136 / 85; Pulse 80; Resp 17; Pulse Ox 99% on R/A; sm5 01:30 BP 132 / 81; Pulse 77; Resp 19; Pulse Ox 100% ; sm5 02:30 BP 129 / 79; Pulse 81; Resp 17; Pulse Ox 99% ; sm5 03:30 BP 130 / 75; Pulse 79; Resp 18; Pulse Ox 100% ; sm5 03/29 20:53 Body Mass Index 23.71 (77.11 kg, 180.34 cm) da3 MDM: 03/29 22:42 Patient medically screened. [facility] 03/30 03:00 Data reviewed: vital signs, nurses notes, lab test result(s), radiologic studies, CT cp scan. 03:00 Differential diagnosis: gastritis, gastroesophageal reflux disease, pancreatitis, cp Peptic Ulcer Disease, Perf. Duodenal Ulcer, Perf. Gastric Ulcer. Counseling: I had a detailed discussion with the patient and/or guardian regarding: the historical points, exam findings, and any diagnostic results supporting the discharge/admit diagnosis. Special discussion: Based on the patient's Hx, exam, and Dx evaluation, there is no indication for emergent surgery or inpatient Tx. It is understood by the patient/guardian that if the Sx's persist or worsen they need to return immediately for re-evaluation. 03/29 23:15 Order name: Basic Metabolic Panel; Complete Time: 23:59 cp 03/29 23:59 Interpretation: Normal except: K 3.3. cp 03/29 23:15 Order name: CBC with Diff; Complete Time: 23:59 cp 03/29 23:15 Order name: Hepatic Function; Complete Time: 23:59 cp 03/29 23:15 Order name: Lipase; Complete Time: 23:59 cp 03/29 23:15 Order name: Magnesium; Complete Time: 23:59 cp 03/30 00:05 Order name: Glucose, Ancillary Testing EDMS 03/29 23:15 Order name: Accucheck Blood Glucose; Complete Time: 23:54 cp 03/29 23:15 Order name: IV Saline Lock; Complete Time: 23:33 cp 03/29 23:15 Order name: Labs collected and sent; Complete Time: 23:33 cp 03/29 23:36 Order name: CT Abd/Pelvis - IV Contrast Only cp 03/30 00:08 Order name: Glucose, Ancillary Testing EDMS Administered Medications: 03/29 23:48 Drug: Pepcid (famotidine) 20 mg Route: IVP; Site: right antecubital; sm5 03/30 03:27 Follow up: Response: Marked relief of symptoms sm5 03:27 Follow up: Response: Marked relief of symptoms sm5 03/29 23:50 Drug: Zofran (Ondansetron) 4 mg Route: IVP; Site: right antecubital; sm5 03/30 03:27 Follow up: Response: Marked relief of symptoms sm5 Disposition Summary: 03/30/21 03:01 Discharge Ordered Location: Home cp Problem: new cp Symptoms: have improved cp Condition: Stable cp Diagnosis - Nausea cp - Abdominal pain, unspecified cp Followup: cp - With: Prabhakar Vu MD - When: 2 - 3 days - Reason: Recheck today's complaints Discharge Instructions: - Discharge Summary Sheet cp - Abdominal Pain, Adult cp - Nausea, Adult cp Forms: - Medication Reconciliation Form cp - Thank You Letter cp - Antibiotic Education cp - Prescription Opioid Use cp - Work release form sm5 Prescriptions: - Carafate 1 gram Oral Tablet - take 1 tablet by ORAL route 4 times per day take on an empty stomach, beginning cp on waking and last dose at bedtime. dissolve tablet in 8 ounces of warm water prior to ingestion; 100 tablet; Refills: 0, Product Selection Permitted - Protonix 40 mg Oral Tablet - take 1 tablet by ORAL route once daily; 30 tablet; Refills: 0, Product cp Selection Permitted - Zofran 4 mg Oral Tablet - take 1 tablet by ORAL route every 12 hours As needed; 20 tablet; Refills: 0, cp Product Selection Permitted Addendum: 04/01/2021 11:15 Co-signature as Attending Physician, Cirilo King MD I agree with the assessment and c rocha plan of care. Signatures: Dispatcher [employer] Cirilo Herrmann MD MD cha Page, Corey, PA PA Shane Maxwell, RN RN da3 Stefania Lee, RN RN sm5
[2021-03-30 03:36] VITALS: TEMP 99.1
[2021-03-30 03:43] VITALS: BP 130/75; O2SAT 100
--- NOTE | 2021-03-30 17:47 | RAD REPORT ---
EXAM DESCRIPTION: CT - Abdomen Pelvis W Contrast - 03/30/2021 6:25 am CLINICAL HISTORY: 25 years, Male, ABD PAIN COMPARISON: 05/30/2020 TECHNIQUE: Contrast-enhanced images of the abdomen and pelvis were performed utilizing 5 mm slice th ickness at 5 mm interval reconstruction from the lung bases to the ischial tuberosities after the adm inistration of IV contrast. In addition multiplanar reformats in the coronal and sagittal plane were obtained and reviewed. This exam was performed according to our departmental dose-optimization protocol, which includes auto mated exposure control, adjustment of the mA and/or kV according to patient size and/or use of iterat charissa reconstruction technique. FINDINGS: The lung bases demonstrate to be clear. The liver, gallbladder, pancreas, spleen and adrenal glands demonstrate to be unremarkable, no focal lesions are noted. The kidneys demonstrate normal uptake of contrast media. No evidence for nephrolithiasis and/or hydro nephrosis. Grossly the unopacified stomach, small bowel and large bowel demonstrate to be within normal limits. There is no evidence for bowel dilatation/or free air. The appendix is normal. The urinary bladder demonstrate to be unremarkable. The prostate gland is normal. The aorta demon strate to be normal. There is no retroperitoneal lymphadenopathy. There is no evidence for ascites or and/or significant abnormal fluid collections. The rest of the soft tissue and bony structures are within normal limits. IMPRESSION: No acute intra-abdominal or pelvic process. Unremarkable CT scan of the abdomen and pelvis with contrast. No significant interval change. Electronically signed by: Jonathan Chaparro MD 03/30/2021 12:48 AM DIRECTOR RISK Due to temporary technical issues with the PACS/Fluency reporting system, reports are being signed by the in house radiologists without review as a courtesy to insure prompt reporting. The interpreting radiologist is fully responsible for the content of the report.
== END 2021-03-30 03:32 | disposition home or self-care (01) ==
LOC: ER 20:34
DX: R10.9 Unspecified abdominal pain (principal); Z72.0 Tobacco use
CPT/HCPCS: 36415; 74177; 80048; 80076; 82947; 83690; 83735; 85025; 96374; 96375; 99284; J2405; Q9967